=== PATIENT | male | born 1995 ===

== ENCOUNTER → 2018-07-29 | Outpatient (REF) | payer BC ==
[2018-07-29 10:56] LABS: PLATELET COUNT, AUTOMATED 164 K/uL (150-450)
== END ==
PROVIDERS: ATTEND Nurse Practitioner Family
DX: R07.9 Chest pain, unspecified (principal)
CPT/HCPCS: 82040; 82247; 82310; 82374; 82435; 82565; 82947; 84075; 84132; 84155; 84295; 84450; 84460; 84484; 84520; 85025

== ENCOUNTER → 2018-08-11 | Outpatient (CLI) | payer BC | LOC: LAB 09:37 | PROVIDERS: ATTEND Emergency Medicine | DX: R20.8 Other disturbances of skin sensation (principal); R71.8 Other abnormality of red blood cells; Z83.42 Family history of familial hypercholesterolemia | CPT/HCPCS: 36415; 82465; 82607; 83718; 84443; 84478 ==

== ENCOUNTER → 2018-08-12 | Outpatient (CLI) | payer BC ==
[~2018-08-12] MED LIST: GADOBENATE 529MG/1ML 15ML VIAL IVP ONE
--- NOTE | 2018-08-12 09:06 | RADIOLOGY IMAGING REPORT ---
FACILITY: [facility] [place] PATIENT NAME: Magdi Childers : 1995 MR: [id number] V: [id number] EXAM DATE: ORDERING PHYSICIAN: LEDA ENGLAND TECHNOLOGIST: Location: [facility] Patient: Magdi Childers : 1995 Visit/Account:[id number] Date of Sevice: 08/12/2018 Single view of the orbits INDICATION: Pre-MRI. Evaluate for radiopaque foreign body. COMPARISON: None available. FINDINGS: Single view of the orbits. Dental hardware in the right anterior maxillary alveolar ridge. No radiopaque foreign body overlying the orbits. Rightward nasal septal deviation. Paranasal sinu ses and mastoid air cells are well aerated. Normal mineralization. IMPRESSION: No evidence of radiopaque foreign body overlying the orbits. Report Dictated By: Tom Ace MD at 08/12/2018 9:00 AM Report E-Signed By: Tom Ace MD at 08/12/2018 9:02 AM WSN:[email or web address]
--- NOTE | 2018-08-12 10:10 | RADIOLOGY IMAGING REPORT ---
FACILITY: [facility] [place] PATIENT NAME: Magdi Childers : 1995 MR: [id number] V: [id number] EXAM DATE: ORDERING PHYSICIAN: LEDA ENGLAND TECHNOLOGIST: Location: [facility] [place] Patient: Magdi Childers : 1995 Visit/Account:[id number] Date of Sevice: 08/12/2018 MR BRAIN/BRAIN STEM W/ & W/O CON Comparisons: None. Additional pertinent history: Abnormal neurological exam TECHNIQUE: Multiplanar, multisequence brain MRI was performed with and without gadolinium contrast. CONTRAST: 15 ml of MultiHance. FINDINGS: Sagittal midline structures and craniocervical junction: Negative. Midline shift: None. Ventricles: Negative. Brain parenchyma: Diffusion weighted imaging: Negative. Gradient sequence: Negative. T2 weighted FLAIR images: Negative. Extra-axial spaces: Negative. Dural venous sinuses and major arterial flow voids: Negative. Intracranial enhancement: Negative.. Mastoid air cells and paranasal sinuses: Negative. Surrounding soft tissues and orbits: Negative. Impression: 1. Normal brain MRI with and without contrast. Report Dictated By: Antoni Hernandez MD at 08/12/2018 10:01 AM Report E-Signed By: Antoni Hernandez MD at 08/12/2018 10:04 AM WSN:[id number]
== END ==
LOC: MRI 01:06
PROVIDERS: ATTEND Emergency Medicine
DX: R29.90 Unspecified symptoms and signs involving the nervous system (principal)
CPT/HCPCS: 70030; 70553; A9577